=== PATIENT | female | born 1930 | race Caucasian/White ===

== ENCOUNTER → 2016-12-13 | Outpatient (CLI) | payer MEDICARE, OTHER ==
[2014-11-09 10:05] VITALS: BP 162/80
[~2016-12-13] MED LIST: ASPIRIN ADULT L81 M3 PO; BETAMETHASONE VA0.1% TP; CALCIUM CITRATE1 TA1 PO; CITRACAL; FISH OIL 1,2001 EACH PO; FISH OIL1 POW; FLAXSEED OIL1000 MG PO; MULTIVITAMIN1 SGL PO; OMEPRAZOLE20 M2 PO; RECLAST5 MG/100 M IV; VITAMIN D 50,1.25 MG PO; [UNRECOGNIZED DRUG - OTHER]
== END ==
LOC: LAB 14:15
DX: M85.89 Other specified disorders of bone density and structure, multiple sites (principal); E78.2 Mixed hyperlipidemia; R73.02 Impaired glucose tolerance (oral); D36.9 Benign neoplasm, unspecified site

== ENCOUNTER → 2017-04-02 | Outpatient (CLI) | payer MEDICARE, OTHER ==
[2014-11-09 10:05] VITALS: BP 162/80
[2017-04-02 17:17] LABS: ALBUMIN 4.2 g/dL (3.5-5.0); BUN/CREATININE RATIO 24.5 (6.0-26.0); CALCIUM 9.6 mg/dL (8.4-10.2); POTASSIUM 4.1 mmol/L (3.6-5.0); TOTAL BILIRUBIN 0.5 mg/dL (0.2-1.3); TOTAL PROTEIN 7.6 g/dL (6.3-8.2)
[2017-04-02 22:33] LABS: ERYTHROCYTE SEDIMENTATION RATE 4 mm/hr (0-30)
[2017-04-02 22:35] LABS: BASO # 0.1 (0.02-0.10); EOS # 0.2 (0.04-0.40); EOS % 1.9 % (1.0-5.0); HEMATOCRIT 45.3 % (37.0-47.0); HEMOGLOBIN 14.8 g/dL (12.5-16.0); LYMPH# 2.5 (1.50-4.00); MEAN CELL VOLUME 95 fl (78-100); MEAN CORPUSCULAR HEMOGLOBIN 31 pg (27-31); MEAN CORPUSCULAR HGB CONC 33 g/dL (33-37); MEAN PLATELET VOLUME 9.8 fl (7.4-10.4); NEU # 4.6 (1.40-6.50); PLATELET COUNT 368 K/mm3 (130-400); RED BLOOD COUNT 4.76 M/mm3 (4.10-5.30); RED CELL DISTRIBUTION WIDTH 12.7 % (11.5-14.5); WHITE BLOOD COUNT 8.4 K/mm3 (4.8-10.8)
== END ==
LOC: LAB 16:39
PROVIDERS: Nurse Practitioner Family
DX: R25.2 Cramp and spasm (principal); M79.672 Pain in left foot; R20.2 Paresthesia of skin; G25.81 Restless legs syndrome; I10 Essential (primary) hypertension; M85.89 Other specified disorders of bone density and structure, multiple sites

== ENCOUNTER → 2017-05-10 | Outpatient (CLI) | payer MEDICARE, OTHER ==
[2014-11-09 10:05] VITALS: BP 162/80
== END ==
LOC: CARDLAB 05-03 10:53 → CARDREHAB 09:36
DX: R06.02 Shortness of breath (principal); R09.89 Other specified symptoms and signs involving the circulatory and respiratory systems; I73.9 Peripheral vascular disease, unspecified; Z87.891 Personal history of nicotine dependence; E78.5 Hyperlipidemia, unspecified; Z82.49 Family history of ischemic heart disease and other diseases of the circulatory system
CPT/HCPCS: A9500

== ENCOUNTER → 2017-07-12 | Outpatient (CLI) | payer MEDICARE, OTHER ==
[~2017-07-12] VITALS: Ht 157.5 cm; Wt 77.7 kg
[~2017-07-12] MED LIST changes: +CLOPIDOGREL PO
[2017-07-12 14:38] VITALS: BP 125/71
[2017-07-12 14:52] LABS: HEMATOCRIT 41.9 % (37.0-47.0); HEMOGLOBIN 13.8 g/dL (12.5-16.0); MEAN CELL VOLUME 93 fl (78-100); MEAN CORPUSCULAR HEMOGLOBIN 31 pg (27-31); MEAN CORPUSCULAR HGB CONC 33 g/dL (33-37); MEAN PLATELET VOLUME 9.4 fl (7.4-10.4); PLATELET COUNT 402 K/mm3 (130-400); RED CELL DISTRIBUTION WIDTH 13.1 % (11.5-14.5); WHITE BLOOD COUNT 7.8 K/mm3 (4.8-10.8)
[2017-07-12 14:54] LABS: D-DIMER 0.45 mg/L FEU (0.15-0.50)
[2017-07-12 15:01] LABS: ALBUMIN 3.8 g/dL (3.5-5.0); BUN/CREATININE RATIO 23.3 (6.0-26.0); CALCIUM 9.1 mg/dL (8.4-10.2); POTASSIUM 4.7 mmol/L (3.6-5.0); TOTAL BILIRUBIN 0.4 mg/dL (0.2-1.3); TOTAL PROTEIN 7.3 g/dL (6.3-8.2)
[2017-07-12 15:13] LABS: TROPONIN-I < 0.03 ng/mL (0.00-0.06)
[2017-07-12 15:16] LABS: LYMPHOCYTE 22 % (20-51); MONOCYTE 11 % (3-10); NEUTROPHILS 64 % (42-75)
== END ==
LOC: AMSURD 13:57
PROVIDERS: Nurse Practitioner Family
DX: R06.02 Shortness of breath (principal)

== ENCOUNTER 2017-08-02 12:15 | Emergency (ER) | payer MEDICARE, OTHER ==
[~2017-08-02] VITALS: Ht 157.5 cm; Wt 77.7 kg
[2017-08-02 12:57] LABS: BASO # 0.1 (0.02-0.10); EOS # 0.1 (0.04-0.40); EOS % 1.4 % (1.0-5.0); HEMATOCRIT 45.2 % (37.0-47.0); HEMOGLOBIN 14.7 g/dL (12.5-16.0); LYMPH# 2.9 (1.50-4.00); MEAN CELL VOLUME 94 fl (78-100); MEAN CORPUSCULAR HEMOGLOBIN 31 pg (27-31); MEAN CORPUSCULAR HGB CONC 33 g/dL (33-37); MEAN PLATELET VOLUME 9.5 fl (7.4-10.4); MONO # 0.9 (0.20-0.80); NEU # 4.7 (1.40-6.50); PLATELET COUNT 334 K/mm3 (130-400); RED BLOOD COUNT 4.82 M/mm3 (4.10-5.30); RED CELL DISTRIBUTION WIDTH 13.4 % (11.5-14.5); WHITE BLOOD COUNT 8.6 K/mm3 (4.8-10.8)
[2017-08-02 13:40] LABS: BUN/CREATININE RATIO 20.8 (6.0-26.0); CALCIUM 9.1 mg/dL (8.4-10.2); TOTAL BILIRUBIN 0.5 mg/dL (0.2-1.3); TOTAL PROTEIN 7.5 g/dL (6.3-8.2)
[2017-08-02 13:54] LABS: PROTHROMBIN TIME 9.9 SECONDS (9.0-12.0)
[2017-08-02 14:17] LABS: CKMB ISOENZYME 1.3 ng/mL (0.6-3.5)
[2017-08-02 15:05] LABS: D-DIMER 0.37 mg/L FEU (0.15-0.50)
[2017-08-02 18:01] LABS: TROPONIN-I < 0.03 ng/mL (0.00-0.06)
[2017-08-02 18:34] VITALS: BP 140/83
== END 2017-08-02 18:26 | disposition home or self-care (01) ==
LOC: ED 12:15
PROVIDERS: Nurse Practitioner Primary Care
DX: J43.9 Emphysema, unspecified (principal); Z79.02 Long term (current) use of antithrombotics/antiplatelets; Z79.82 Long term (current) use of aspirin; Z95.820 Peripheral vascular angioplasty status with implants and grafts
CPT/HCPCS: Q9967

== ENCOUNTER → 2017-10-17 | Outpatient (CLI) | payer MEDICARE, OTHER ==
[2017-10-17 11:42] LABS: HEMATOCRIT 38.5 % (37.0-47.0); HEMOGLOBIN 12.9 g/dL (12.5-16.0); MEAN CELL VOLUME 94 fl (78-100); MEAN CORPUSCULAR HEMOGLOBIN 32 pg (27-31); MEAN CORPUSCULAR HGB CONC 34 g/dL (33-37); MEAN PLATELET VOLUME 9.6 fl (7.4-10.4); PLATELET COUNT 330 K/mm3 (130-400); WHITE BLOOD COUNT 7.5 K/mm3 (4.8-10.8)
[2017-10-17 11:59] LABS: CALCIUM 9.2 mg/dL (8.4-10.2); POTASSIUM 4.1 mmol/L (3.6-5.0); TOTAL BILIRUBIN 0.5 mg/dL (0.2-1.3); TOTAL PROTEIN 7.3 g/dL (6.3-8.2)
[2017-10-17 13:04] LABS: ERYTHROCYTE SEDIMENTATION RATE 7 mm/hr (0-30); LYMPHOCYTE 39 % (20-51); MONOCYTE 11 % (3-10); NEUTROPHILS 48 % (42-75); POLYCHROMASIA 1+
== END ==
LOC: LAB 11:23
PROVIDERS: Internal Medicine
DX: I48.2 Chronic atrial fibrillation (principal); E78.5 Hyperlipidemia, unspecified; M85.80 Other specified disorders of bone density and structure, unspecified site; K90.89 Other intestinal malabsorption; I73.9 Peripheral vascular disease, unspecified

== ENCOUNTER → 2017-11-14 | Outpatient (CLI) | payer MEDICARE, OTHER | LOC: RAD 09:02 → MAMMO 09:15 → RAD 09:15 | DX: M85.80 Other specified disorders of bone density and structure, unspecified site (principal) ==